=== PATIENT | male | born 1985 | race African-American/Black ===

== ENCOUNTER → 2017-09-16 | Outpatient (CLI) | payer OTHER ==
--- NOTE | 2017-09-16 13:19 | CT ---
HISTORY: Basketball injury, hit in jaw, jaw pain, swelling Study: CT facial bones Comparison: None Technique: Multiple axial images of the facial structures were obtained. Dose reduction techniques i ncluding Automated Exposure Control (AEC) and adjustment of mA and kV were utilized. Findings: The visualized intracranial structures are unremarkable. There is a displaced horizontally oriented f racture at the angle of the mandible extending into the mandibular body as well as additional vertica lly-oriented fracture in the midline at the mandibular symphysis with displacement 8-9 mm. The symphy seal fracture is seen between the medial and lateral right mandibular incisor teeth. The angle/body f racture extends into the socket of the most posterior right mandibular tooth without evidence of trau matic avulsion. The mandibular condyles appear in normal position. The skull base and visualized port ions of the cervical spine are intact. The paranasal sinuses are clear. The orbits and globes are unr emarkable. IMPRESSION: 1. Displaced fractures involving the right mandibular body and mandibular symphysis as described. Reported By:
== END | disposition home or self-care (01) | DRG 158 ==
LOC: RAD 11:32
DX: R68.84 Jaw pain (principal); S02.601A Fracture of unspecified part of body of right mandible, initial encounter for closed fracture; S02.66XA Fracture of symphysis of mandible, initial encounter for closed fracture; X58.XXXA Exposure to other specified factors, initial encounter
CPT/HCPCS: 70486